=== PATIENT | female | born 1995 | race Caucasian/White ===

== ENCOUNTER 2020-03-14 21:34 | Outpatient (REF) | payer MEDICAID, SELFPAY ==
[2020-03-17 17:34] LABS: Patient Race White; SARS-CoV-2 RNA Undetected (Undetected); SARS-CoV-2 Specimen Source Nasal
== END 2020-03-14 21:54 ==
LOC: NCHCN 21:34
PROVIDERS: PCP Family Medicine; Visit Provider Family Medicine
DX: Z20.828 Contact with and (suspected) exposure to other viral communicable diseases (principal)
CPT/HCPCS: U0003

== ENCOUNTER 2021-09-05 09:17 | Emergency (ER) | payer MEDICAID, SELFPAY ==
[2021-09-05 09:26] VITALS: BP 126/68; PULSE 53; RESP 16; TEMP 36.6; O2SAT 100
--- NOTE | 2021-09-05 09:30 | DI.RAD_ITS ---
Exam(s) XR FOOT RT COMPLETE EXAM: XR FOOT RT COMPLETE CLINICAL HISTORY: 3rd 4th 5th toe injury, R/O Fracture. TECHNIQUE: 2D digital imaging was performed. COMPARISON: No exams were available for comparison FINDINGS: 3 views There is no oblique fracture in the proximal phalanx of the 4th toe There is no evidence of fracture or diastasis of the Lisfranc joint. Bone density is normal. No osseous lesions at the fracture site nor elsewhere in the foot. No radio paque foreign body. No pes planus. IMPRESSION: There is an oblique minimally displaced fracture in the proximal phalanx of the 4th toe. This fractu re does not appear to violate an articular surface. DATA REPOSITORY: RADIATION DOSE DELIVERED:
--- NOTE | 2021-09-05 09:33 | ED.GENADUL_ITS ---
Discharge Plan Disposition Patient Disposition: HOME Discharge Details Clinical Impression: Closed fracture of fourth toe of right foot Primary Care Provider: Neela Rodriguez ED Provider: Ilana Mora Home Meds and New Rx's Prescriptions: No Action multivitamin 1 EACH tablet 1 ea PO DAILY Discharge Instructions Instructions: Toe Fracture (ED) Additional Instructions: The X-rays show a fracture to the 4th toe. Wear the post op shoe as needed for comfort. Keep toe santy taped for splinting. Please follow up with Orthopedics as directed. They should call you for an appointment. If you do not hear from them in 3 days please call them. Rest Ice Compression, Elevation. Please take Tylenol or Ibuprofen with food every 4-6 hours as needed for pain and swelling. Referrals: Jerson Sol MD [ [facility] STAFF PHYSICIAN] - 2 weeks Medical Decision Making Patient placed in a postop shoe and santy tape instructed on RICE procedures and follow-up with Ortho. Patient verbalized understanding. This text was generated using [employer] dictation system, please disregard any oddities of phrase or misspellings. Imaging Data Radiologic Study: Imaging: X-Ray Radiologist's impression: FINDINGS: 3 views There is no oblique fracture in the proximal phalanx of the 4th toe There is no evidence of fracture or diastasis of the Lisfranc joint.? Bone density is normal.? No osseous lesions at the fracture site nor elsewhere in the foot.? No radiopaque foreign body.? No pes planus. IMPRESSION: There is an oblique minimally displaced fracture in the proximal phalanx of the 4th toe.? This fracture does not appear to violate an articular surface. HPI General Mode of arrival: ambulatory . Date/Time Provider Initiated Documentation: 09/05/21 09:20 . Limitations to Documentation: no limitations . Information obtained by: patient, RN notes reviewed and old records reviewed . HPI Narrative: 18-year-old female presents to the ER with chief complaint of right foot pain after slipping on wet concrete today morning and jamming her right foot into a door jam. She noted contusions noted to her third fourth and fifth toes. No obvious deformity noted. There is some ecchymosis. No significant swelling denies any foot pain ankle pain. No other complaints or injuries. Did not take any medications prior to arrival. Related Data Home Medications Medication Instructions Recorded Confirmed multivitamin 1 ea PO DAILY 02/21/15 09/05/21 Allergies Allergy/AdvReac Type Severity Reaction Status Date / Time No Known Drug Allergies Allergy Unverified 09/05/21 09:35 General Stated Complaint: Orthopedic JASWINDER: 4 Review of Systems All systems reviewed & are unremarkable except as noted in HPI and below Musculoskeletal Musculoskeletal: Reports as per HPI and Reports arthralgias (Toe pain) PFSH All Active Problems (Updated 09/05/21 @ 09:55 by Ilana Mora) Closed fracture of fourth toe of right foot (Acute) Positive home test (Acute) Social History Smoking/Tobacco Use Status: Former Tobacco Use Smoking risk assessment performed?: Yes Alcohol Intake: current Alcohol Intake frequency: a few times a month Alcohol type: wine Drug use: Occasionally Substance use type: marijuana Do you feel safe at home: Yes Do you feel safe in your relationship?: Yes Exam Extrem General: normal to inspection and full ROM Right upper extremity: normal to inspection Left upper extremity: normal to inspection Right lower extremity: normal capillary refill, lower leg Details: normal to inspection, ankle Details: normal to inspection and foot Details: normal capillary refill, abnormal to inspection, tenderness and other (Contusions noted 3rd, 4th, 5th toes); no cyanosis and no edema Left lower extremity: normal to inspection Course Vital Signs Vital signs: Vital Signs Temperature 36.6 C 09/05/21 09:26 Pulse 53 L 09/05/21 09:26 Respiratory Rate 16 09/05/21 09:26 Blood Pressure 126/68 09/05/21 09:26 Pulse Oximetry 100 09/05/21 09:26 Temperature 36.6 C 09/05/21 09:26 Temperature Source Tympanic 09/05/21 09:26 Pulse 53 L 09/05/21 09:26 Respiratory Rate 16 09/05/21 09:26 Blood Pressure 126/68 09/05/21 09:26 Blood Pressure Position Sitting 09/05/21 09:26 Pulse Oximetry 100 09/05/21 09:26 Oxygen Delivery Method Room Air 09/05/21 09:26 Oxygen Flow Rate 0 09/05/21 09:26 Pain Level 8 09/05/21 09:26
[2021-09-05] MEDS: Acetaminophen 325 MG TAB 650 MG PO (10:49)
== END 2021-09-05 10:49 | disposition home or self-care (01) ==
PROVIDERS: Emergency Provider Registered Nurse Emergency; PCP Family Medicine
DX: S92.591A Other fracture of right lesser toe(s), initial encounter for closed fracture (principal); W22.01XA Walked into wall, initial encounter
CPT/HCPCS: 99283; 73630

== ENCOUNTER 2021-09-14 11:58 | Outpatient (CLI) | payer MEDICAID, SELFPAY ==
--- NOTE | 2021-09-14 11:45 | DI.RAD_ITS ---
Exam(s) XR FOOT RT COMPLETE EXAM: XR FOOT RT COMPLETE CLINICAL HISTORY: f/u 4th toe fracture. TECHNIQUE: 2D digital imaging was performed of the right foot. Three images were obtained. AP, obl ique and lateral views were obtained. COMPARISON: CR XR FOOT RT COMPLETE from 09/05/2021 FINDINGS: BONES: There has been no change in alignment of the fracture involving the proximal phalanx of the 4t h toe. No bony destructive lesion is seen. JOINTS: No dislocation present. SOFT TISSUE: Normal. IMPRESSION: Stable fracture of the proximal phalanx of the 4th toe. DATA REPOSITORY: RADIATION DOSE DELIVERED:
== END 2021-09-14 11:59 | disposition home or self-care (01) ==
LOC: DIORS 11:59
PROVIDERS: PCP Student in an Organized Health Care Education/Training Program; Referring Provider Student in an Organized Health Care Education/Training Program; Visit Provider Student in an Organized Health Care Education/Training Program
DX: S92.511A Displaced fracture of proximal phalanx of right lesser toe(s), initial encounter for closed fracture; X58.XXXA Exposure to other specified factors, initial encounter
CPT/HCPCS: 73630

== ENCOUNTER 2022-05-08 03:30 | Outpatient (CLI) | payer MEDICAID, SELFPAY ==
[2022-05-08 14:56] LABS: Panorama Kit Sent via Fed Ex
[2022-05-08 14:58] LABS: Abs Immature Grans 0.05 10^3/uL (0.0-0.06); Absolute Basophil Count 0.04 10^3/uL (0.0-0.2); Absolute Eosinophil Count 0.11 10^3/uL (0.0-0.7); Absolute Lymphocyte Count 1.81 10^3/uL (1.2-3.4); Basophils % 0.3; Eosinophils % 0.9; HCT 33.5 % (36.0-46.0); HGB 11.8 g/dL (11.2-15.7); Immature Grans % 0.4; Lymphocytes % 14.2; MCH 33.3 pg (27.0-33.0); MCHC 35.2 % (32.0-36.0); MCV 95 fL (80-95); MPV 10.8 fL (8.0-11.0); Monocytes % 3.9; Neutrophils % 80.3; Platelet Count 304 10^3/uL (130-400); RBC 3.54 10^6/uL (3.93-5.22); RDW 11.6 % (11.7-14.6); RDW-SD 40.4 fL; WBC 12.77 10^3/uL (4.4-10.8)
[2022-05-08 15:00] LABS: Absolute Neutrophil Count 10.25 10^3/uL (1.2-6.7)
[2022-05-09 09:43] LABS: Hepatitis B Surface Ag Negative (Negative)
[2022-05-09 10:05] LABS: Hepatitis C Ab w Rflx HCV PCR Negative (Negative)
[2022-05-09 10:36] LABS: HIV-1/2 Ag & Ab Screen Negative (Negative)
[2022-05-09 11:30] LABS: Varicella IgG Antibody Positive (See Note)
[2022-05-09 11:36] LABS: Rubella IgG Ab (UVM) Positive (See Note)
[2022-05-09 23:03] LABS: Syphilis IgG w/Reflex Nonreactive (Nonreactive)
[2022-05-28 15:34] LABS: Result Summary NEGATIVE; Specimen WB Whole Blood
== END 2022-05-08 03:31 | disposition home or self-care (01) ==
LOC: LBO 03:30
PROVIDERS: PCP Student in an Organized Health Care Education/Training Program; Visit Provider Advanced Practice Midwife
DX: Z34.91 Encounter for supervision of normal pregnancy, unspecified, first trimester (principal); Z36.89 Encounter for other specified antenatal screening; Z3A.11 11 weeks gestation of pregnancy
CPT/HCPCS: 36415; 81220; 81222; 86787; 86803; 86850; 86900; 86901; 87340; 87389; 85025; 86762; 86780

== ENCOUNTER 2022-05-08 17:28 | Outpatient (REF) | payer MEDICAID, SELFPAY ==
[2022-05-08 19:19] LABS: *AMPHETAMINES SCREEN URINE Negative (Negative); *BARBITURATES SCREEN URINE Negative (Negative); *BENZODIAZEPINES SCREEN URINE Negative (Negative); Cannabinoids THC Positive (Negative); Cocaine Screen,Urine Negative (Negative); METHADONE URINE SCREEN Negative (Negative); OPIATES URINE SCREEN Negative (Negative)
[2022-05-08 19:20] LABS: Tricyclic Antidepressants Negative (Negative)
[2022-05-15 10:36] LABS: Buprenorphine Negative ng/mL (Cutoff: 5.0); Norbuprenorphine Negative ng/mL (Cutoff: 2.5)
== END 2022-05-08 17:29 | disposition home or self-care (01) ==
LOC: LBN 17:28
PROVIDERS: PCP Student in an Organized Health Care Education/Training Program; Visit Provider Advanced Practice Midwife
DX: Z34.91 Encounter for supervision of normal pregnancy, unspecified, first trimester (principal); Z3A.11 11 weeks gestation of pregnancy
CPT/HCPCS: 80307; 80348; 87086

== ENCOUNTER 2022-05-31 01:13 | Outpatient (CLI) | payer MEDICAID, SELFPAY ==
--- NOTE | 2022-05-31 07:45 | DI.US_ITS ---
Exam(s) US OB 1ST TRIMESTER EXAM: US OB 1ST TRIMESTER CLINICAL HISTORY: dating. Patient declines transvaginal,z34.90. TECHNIQUE: First trimester obstetrical ultrasound was performed. COMPARISON: No exams were available for comparison FINDINGS: There is an intrauterine gestational sac which contains a yolk sac and viable pole which exhibi ts heart rate of 152 bpm. [place]-rump length measurement is 79 mm, corresponding to 14 weeks gestational age. There appears to be normal amount of amniotic fluid. Maternal ovaries: Not visualized. There is no fluid in the cul-de-sac and adnexal regions. IMPRESSION:: Single viable intrauterine gestation which is approximately 14 weeks gestational age by crown rump length measurement, implying SHAMIKA of November 29, 2022., 2020. heart rate demonstrated. There is normal amount of amniotic fluid DATA REPOSITORY:
== END 2022-05-31 01:33 ==
LOC: DI 01:13
PROVIDERS: PCP Student in an Organized Health Care Education/Training Program; Visit Provider Advanced Practice Midwife
DX: Z34.91 Encounter for supervision of normal pregnancy, unspecified, first trimester (principal)
CPT/HCPCS: 76801

== ENCOUNTER 2022-07-23 02:02 | Outpatient (CLI) | payer MEDICAID, SELFPAY ==
--- NOTE | 2022-07-23 08:15 | DI.US_ITS ---
Exam(s) US OB 2-3 TRIMESTER EXAM: US OB 2-3 TRIMESTER CLINICAL HISTORY: morphology,Z34.92. TECHNIQUE: Transabdominal obstetrical ultrasound was performed. COMPARISON: US US OB 1ST TRIMESTER from 05/31/2022 FINDINGS: There is a single viable intrauterine gestation with cardiac activity identified-145 bpm. Amniotic fluid: There is a normal amount of amniotic fluid. Placental location: The placenta is anterior grade 1,with no evidence of placenta previa.Distance fro m the tip of the placenta to the internal cervical os is 6 cm. ANATOMY: A 3 vessel umbilical cord is seen. A four-chamber cardiac view was obtained. Right and left ventricular outflow tracts were imaged. There are no obvious abnormalities of the spinal column evident. There is no obvious abnormal ity of the anterior abdominal wall. stomach and urinary bladder are identified and there is no evidence of hydronephrosis. No abnormalities of the upper lip region are identified. No evidence of choroid plexus cysts i n the brain. Dating parameters place this at approximately 21 weeks and 6 days gestational age. BPD measures 22 weeks and 4 days HC measures 22 weeks and 2 days AC measures 21 weeks and 5 days FL measures 21 weeks and 0 days Estimated weight is 429 gm-0 pounds, 15 ounces. Fetus is at the 27th percentile on the Hadlock scale. IMPRESSION:: Single viable intrauterine gestation which is approximately 21 weeks and 6 days gestati onal age, implying an SHAMIKA of November 27, 2022. There are no obvious anomalies evident on today's study. The placenta is anterior grade 1 with no evidence of placenta previa. There is a normal amount of amniotic fluid. DATA REPOSITORY:
== END 2022-07-23 02:22 ==
LOC: DI 02:03
PROVIDERS: PCP Student in an Organized Health Care Education/Training Program; Visit Provider Advanced Practice Midwife
DX: Z34.92 Encounter for supervision of normal pregnancy, unspecified, second trimester (principal); Z3A.21 21 weeks gestation of pregnancy
CPT/HCPCS: 76805

== ENCOUNTER 2022-08-28 16:54 | Outpatient (CLI) | payer MEDICAID, SELFPAY ==
[2022-08-28 18:39] VITALS: BP 112/64; PULSE 62
[2022-08-28 18:44] VITALS: BP 112/64; PULSE 62; TEMP 36.7
--- NOTE | 2022-08-28 18:47 | W.OBNST ---
Date of service: 08/28/22 Time of Service: 18:47 NST Evaluation Reason for NST Reasons for Nonstress Test: OTHER, SEE COMMENT Reason for NST Other: Assess well being. Gestational Age Gestational Age in Weeks and Days: 27 Weeks and 0Days Test and Monitor Explained Test/Monitor Explained: Test Explained, Monitor Explained and Patient Verbalized Understanding Vital Signs Blood Pressure: 112/64 Pulse: 62 Temperature: 98.1 F NST Information Date on Monitor: 08/28/22 Time on Monitor: 18:21 Date off Monitor: 08/28/22 Time off Monitor: 18:42 Total Time on Monitor: 21 NST Interventions: PO Hydration NST Evaluation Patient States Movement: Present FHR Baseline: 140 Variability: Moderate 6-25 bpm Accelerations: 15x15 and 10x10 Decelerations: None NST Results: Reactive Note Ultrasound Done: N/A. NST Note Note: Joanna presented for NST due to complaint of vaginal bleeding after intercourse this morning that has stopped. She refuses vaginal exam. NST is reactive and there is no evidence of contractions on toco. Abdomen is soft and non tender to palpation. Joanna has an appointment in the office next week. Rh+. Will call with any further concerns. BEN NST Reviewed and Verified by: Juju Leahy
[2022-08-28 18:48] VITALS: BP 112/64; PULSE 62; TEMP 36.7
== END 2022-08-28 18:45 | disposition home or self-care (01) ==
LOC: BCD 16:55 → OBS 18:27
PROVIDERS: Visit Provider Advanced Practice Midwife
DX: Z3A.27 27 weeks gestation of pregnancy; O26.852 Spotting complicating pregnancy, second trimester
CPT/HCPCS: 59025

== ENCOUNTER 2022-09-11 03:40 | Outpatient (CLI) | payer MEDICAID, SELFPAY ==
[2022-09-11 10:30] LABS: HCT 33.1 % (36.0-46.0); HGB 11.4 g/dL (11.2-15.7); MCH 33.5 pg (27.0-33.0); MCHC 34.4 % (32.0-36.0); MCV 97 fL (80-95); MPV 11.1 fL (8.0-11.0); Platelet Count 267 10^3/uL (130-400); RDW 12.3 % (11.7-14.6); RDW-SD 43.8 fL; WBC 11.07 10^3/uL (4.4-10.8)
[2022-09-11 10:47] LABS: Glucose,1 Hr (Glucola) 65 mg/dL (80-140)
== END 2022-09-11 03:41 | disposition home or self-care (01) ==
LOC: LBO 03:40
PROVIDERS: Visit Provider Advanced Practice Midwife
DX: Z34.93 Encounter for supervision of normal pregnancy, unspecified, third trimester (principal); Z3A.28 28 weeks gestation of pregnancy
CPT/HCPCS: 36415; 82950; 85027

== ENCOUNTER 2022-10-29 14:24 | Outpatient (REF) | payer MEDICAID, SELFPAY | END 2022-10-29 14:25 | disposition home or self-care (01) | LOC: LBN 14:24 | PROVIDERS: Visit Provider Advanced Practice Midwife | DX: Z34.93 Encounter for supervision of normal pregnancy, unspecified, third trimester (principal); Z36.85 Encounter for antenatal screening for Streptococcus B; Z3A.35 35 weeks gestation of pregnancy | CPT/HCPCS: 87081 ==

== ENCOUNTER 2022-11-17 23:35 | Inpatient (IN) | payer MEDICAID, SELFPAY ==
[2022-11-17 23:50] VITALS: BP 136/83; PULSE 80
[2022-11-18] VITALS (24 sets, daily range): BP systolic 110–147; BP diastolic 58–83; PULSE 61–84; RESP 16; TEMP 36.3–36.7
[2022-11-18 00:15] LABS: ROM Plus Positive
--- NOTE | 2022-11-18 00:44 | HPE_ITS ---
Date of service: 11/18/22 Time of Service: 00:44 Assessment and Plan Assessment and plan (1) Rupture, membranes, premature: Status: Acute Assessment and plan: 1. Term ROM at 38w4d with contractions beginning within 2 hours of ROM 2. Patient prefers expectant management vs augmentation of labor 3. Initial labs ordered, ROM plus +, GC CT obtained on urine sample as not otherwise noted in chart, UDS sent as patient prefers to take her placenta home with her PP. 4. Will support labor and reassess in 4 hours or prn. OB-HPI Labor/Delivery History of Present Illness Reason for Visit: r/o labor Chief Complaint: Uterine Contractions; Suspected Rupture of Membranes , Associated Signs and Symptoms of Suspected ROM: ROM plus +, reported gush of fluid vaginally. SHAMIKA Calculator Estimated Delivery Date Method Current WG Current Estimate 11/27/22 LMP (Certain) 38w 5d Other Estimates 11/29/22 Ultrasound #1 38w 3d Comments: Joanna presents with her family with reported SROM at 2200 of clear fluid and increasing urterine contractions since that time. Denies bloody show. Reports baby is active. She is hoping for unmedicated labor and and prefer to use expectant management at this time. She has a plan that she brought with her as well. History of Present Expected Delivery Route/Plan BEATRIZ - LUIS ALFREDO FOB/timothy - Crispin Anderson, live together (he has a 10 year old) BB no circ To use shower & nitrous, maybe tub, wants upright or H&K positioning Plans placenta encapsulation (advised to delay until milk production established) GBS negative Specific Issues/Plan 1. cfDNA low risk x5 male, CF negative, declines AFP 2. History anxiety/depression, no meds, has found a therapist. 3. THC+ on initial UDS. Repeat @ 28 wks, discussed POSC w/pt, Reports that she stopped, declines repeat UDS 4. Right eye twitches & feels puffy, will try Magnesium & see operations label clerk 5. Needle phobia 6. Difficulty with milk supply - Desires consult ___ Review of Systems All systems reviewed & are unremarkable except as noted in HPI and below PFSH All Active Problems (Updated 11/18/22 @ 00:52 by Juju Leahy CNM) Rupture, membranes, premature (Acute) Acute adjustment disorder with mixed anxiety and depressed mood (Acute) Situational stress (Acute) Depression affecting (Chronic) Vasovagal syncope (Acute) Marijuana use (Acute) (Acute) Back pain affecting (Acute) Anxiety (Chronic 09/29/14) Medical History ASCUS of cervix with negative high risk HPV 2014 Closed fracture of sternal end of clavicle (02/05/13) NON DISPLACED History of tobacco use Missed menses PTSD (post-traumatic stress disorder) (09/29/14) Family History Mother Fibromyalgia Maternal Grandmother Rheumatoid arthritis Alcohol use disorder Father Heart disease congestive heart disease Diabetes Alcohol use disorder Brother Hypertension Alcohol use disorder Social History Smoking/Tobacco Use Status: Former Tobacco Use Smoking risk assessment performed?: Yes Alcohol Intake: current Alcohol Intake frequency: a few times a month Alcohol type: wine Drug use: Occasionally Substance use type: marijuana Housing: house Do you feel safe at home: Yes Do you feel safe in your relationship?: Yes History History 5 Para 1 Hx # Term Pregnancies 0 Multiple births 0 Hx # Pregnancies 0 Ectopic pregnancies 0 AB induced 2 Hx Number of Living Children 1 AB spontaneous 1 Past Pregnancies Del. Date GA/Weeks # Preg Succ Route Wgt Sex Labor Lgth Anesth esia Location [facility] 10/27/17 40 No Yes vaginal 7 lb 12 oz Male 30 hr labor [facility] Delivery Date: 10/27/17 Last Updated by: LUIS ALFREDO L[place]. Long second stage. meconium Meds Allergies and Home Medications Allergies Allergy/AdvReac Type Severity Reaction Status Date / Time No Known Drug Allergies Allergy Verified 11/13/22 10:53 Home Medications Medication Instructions Recorded Confirmed Type ferrous sulfate 325 mg (65 mg 325 mg PO DAILY #90 tabs 10/29/22 10/29/22 Rx iron) tablet (Feosol) vitamins no.119-iron 1 tab PO DAILY #90 tabs 10/29/22 10/29/22 Rx fumarate 29 mg-folic acid 1 mg tablet Exam Physical Exam Vital signs: Temp Pulse Resp BP 97.9 F 80 16 136/83 11/18/22 00:03 11/18/22 00:03 11/18/22 00:03 11/18/22 00:03 Vital Signs Reviewed: Yes Constitutional Constitutional: no acute distress and obese Detailed Labor and Delivery Exam Dilation: 1 Effacement (%): 60 station: -3 Cervix position: posterior Consistency: medium Brown Score: Cervical Points Exam 0 1 2 3 Dilation Closed 1-2cm 3-4 cm 5-6cm Effacement 0-30% 40-50% 60-70% 80% Consistency Firm Medium Soft Station -3 -2 -1,0 +1,+2 Position Posterior Mid Anterior BROWN Score(Cervical Ripeness Score): 4 Amniotic Membrane Status: Ruptured Rupture Method: Spontaneous Amniotic Fluid: Clear Monitor Mode: External Contraction Frequency(min): 2-4 Contraction Duration(sec): 50-60 Contraction Intensity: Mild Fetus A Heart Rate Baseline: 125 Monitor Accelerations: 15 X 15 Monitor Decelerations: None Variability: Moderate (6-25 BPM) Categories: Category I Date of Membrane Rupture: 11/17/22 Time of Membrane Rupture: 22:00 Assessment Note: this report is from tracing on admission, currently off monitor and will use intermittent doppler HEENT Exam HEENT Exam: Normal Neck Exam Neck Exam: Normal Chest/Brest/Axilla Exam Chest Exam: Normal Breast Exam Breast Exam: Not Done Respiratory Exam Respiratory Exam: Normal Cardiovascular Exam Cardiovascular Exam: Normal Abdominal Exam Abdominal Exam: Normal (gravid uterus size equals dates) Rectal Exam Rectal Exam: Not Done Exam Exam: Normal (no fluid return on VE, which was done by RN on admission) Extremities Exam Extremities Exam: Normal Back/Spine/Pelvis Exam Back Exam: Normal Pelvis Adequate: Yes Skin Exam Skin Exam: Normal Neurological Exam Neurological Exam: Normal Psychiatric Exam Psychiatric Exam: Normal (has needle phobia but agrees to admission labs) Results Results Group Beta Strep: Negative Blood Type: A+ Rubella Status: Immune Varicella Immunity: Immune Risk Assessment Risk for Shoulder Dystocia Historical/Initial OB: NEGATIVE FOR: Pelvic Abnormality, Pre- BMI>30, Previous Shoulder Dystocia or Previous Macrosomia 40 Weeks: POSTIVE FOR: Maternal Weight Gain >40lb; NEGATIVE FOR: EFW> 4500 gms or Post Dates Delivery Plan @ 40 wks: some risk due to weight gain in , will be prepared at delivery. BEN Risk for Pre-Eclampsia Yes, if one or more: NEGATIVE FOR: Hx Pre-E/Gest HTN, Chronic HTN, Multiple Gestation, Pre-gestational DM, Renal Disease, Systemic Lupus or APA Syndrome Yes, if 2 or more: NEGATIVE FOR: Nulliparity, Age>= 35 yrs, >10yr btwn pregnancies, BMI>30, ethinicty, Mother/Sister w/ Pre-E or Previous IUGR Risk for Post- Hemorrhage Initial: NEGATIVE FOR: Multiple Gestation, Previous PPH, Known Clotting Deficiency, Grand Multiparity or Anticoagulation 40 Weeks: NEGATIVE FOR: Anemia, hgb<10, Low platelets (thrombocytopenia), Gestation HTN or Pre-E, Polyhydraminios or EFW>4500gms At Risk?: No Counseled re: Active Management: Yes Date/Initials: 11/18/22 Risks Reviewed Risks Reviewed Upon Admission: Yes
[2022-11-18 00:51] LABS: HCT 35.6 % (36.0-46.0); HGB 12.6 g/dL (11.2-15.7); MCH 34.1 pg (27.0-33.0); MCHC 35.4 % (32.0-36.0); MCV 96 fL (80-95); MPV 11.8 fL (8.0-11.0); Platelet Count 254 10^3/uL (130-400); RDW 12.4 % (11.7-14.6); RDW-SD 43.5 fL; WBC 14.26 10^3/uL (4.4-10.8)
[2022-11-18 00:51] LABS: *AMPHETAMINES SCREEN URINE Negative (Negative); *BARBITURATES SCREEN URINE Negative (Negative); *BENZODIAZEPINES SCREEN URINE Negative (Negative); Cannabinoids THC Positive (Negative); Cocaine Screen,Urine Negative (Negative); METHADONE URINE SCREEN Negative (Negative); OPIATES URINE SCREEN Negative (Negative)
[2022-11-18 00:55] LABS: Tricyclic Antidepressants Negative (Negative)
--- NOTE | 2022-11-18 07:21 | W.PM.OBNL1 ---
Date of service: 11/18/22 Time of Service: 07:21 Pelvic Exam Comments: VE deferred at this time Contractions Monitor Mode: Palpation Contraction Frequency(min): 2-4 Contraction Duration(sec): 60 Intensity: Mild/Moderate Fetus A Monitor: Doppler Heart Rate Baseline: 130 Assessment and Plan Assessment and plan (1) Rupture, membranes, premature: Status: Acute Assessment and plan: 1. Working well with contractions 2. Continue present expectant management 3. Reassess in 4 hours or prn. KH Objective Abnormal lab results 11/18/22 11/18/22 Range/Units 00:03 00:42 WBC 14.26 H (4.4-10.8) 10^3/uL RBC 3.70 L (3.93-5.22) 10^6/uL Hct 35.6 L (36.0-46.0) % MCV 96 H (80-95) fL MCH 34.1 H (27.0-33.0) pg MPV 11.8 H (8.0-11.0) fL Ur THC Screen Positive A (Negative) Temp Pulse Resp BP 98.1 F 80 16 128/81 11/18/22 06:34 11/18/22 07:14 11/18/22 00:03 11/18/22 07:14 Laboratory Results WBC 14.26 10^3/uL (4.4-10.8) H 11/18/22 00:42 RBC 3.70 10^6/uL (3.93-5.22) L 11/18/22 00:42 Hgb 12.6 g/dL (11.2-15.7) 11/18/22 00:42 Hct 35.6 % (36.0-46.0) L 11/18/22 00:42 MCV 96 fL (80-95) H 11/18/22 00:42 MCH 34.1 pg (27.0-33.0) H 11/18/22 00:42 MCHC 35.4 % (32.0-36.0) 11/18/22 00:42 RDW 12.4 % (11.7-14.6) 11/18/22 00:42 Plt Count 254 10^3/uL (130-400) 11/18/22 00:42 MPV 11.8 fL (8.0-11.0) H 11/18/22 00:42 Membranes Rupture Positive 11/17/22 23:47 Urine Opiates Screen Negative (Negative) 11/18/22 00:03 Urine Methadone Screen Negative (Negative) 11/18/22 00:03 Ur Barbiturates Screen Negative (Negative) 11/18/22 00:03 Ur Tricyclics Screen Negative (Negative) 11/18/22 00:03 Ur Amphetamines Screen Negative (Negative) 11/18/22 00:03 U Benzodiazepines Scrn Negative (Negative) 11/18/22 00:03 Urine Cocaine Screen Negative (Negative) 11/18/22 00:03 Ur THC Screen Positive (Negative) A 11/18/22 00:03 Patient ABO/Rh A Positive 11/18/22 00:42 Antibody Screen NEGATIVE 11/18/22 00:42 Vital Signs Reviewed: Yes Subjective Interval history since last seen: Joanna reports more intense and frequent contractions for past hour. She had been sleeping for 3-4 hours and now feels things are changing. Denies vaginal bleeding and reports baby is active. KH Results Hemoglobin/Hematocrit: Hgb 12.6 g/dL (11.2-15.7) 11/18/22 00:42 Hct 35.6 % (36.0-46.0) L 11/18/22 00:42 Abnormal Lab Findings: Abnormal Labs 11/18/22 11/18/22 00:03 00:42 WBC 14.26 H RBC 3.70 L Hct 35.6 L MCV 96 H MCH 34.1 H MPV 11.8 H Ur THC Screen Positive A
--- NOTE | 2022-11-18 10:46 | W.PM.OBNL1 ---
Date of service: 11/18/22 Time of Service: 10:47 Pelvic Exam Comments: deferred Contractions Contraction Frequency(min): 2-4 Contraction Duration(sec): 60 Intensity: Moderate Fetus A Monitor: Doppler Heart Rate Baseline: 130 Assessment and Plan Assessment and plan (1) Rupture, membranes, premature: Status: Acute Assessment and plan: 1. Joanna plans to send her young sons home with a family member in the next few hours and prefers to avoid VE until after they leave unless otherwise indicated. 2. Continue expectant management. KH Objective Abnormal lab results 11/18/22 11/18/22 Range/Units 00:03 00:42 WBC 14.26 H (4.4-10.8) 10^3/uL RBC 3.70 L (3.93-5.22) 10^6/uL Hct 35.6 L (36.0-46.0) % MCV 96 H (80-95) fL MCH 34.1 H (27.0-33.0) pg MPV 11.8 H (8.0-11.0) fL Ur THC Screen Positive A (Negative) Temp Pulse Resp BP 97.9 F 65 16 137/75 11/18/22 10:16 11/18/22 09:20 11/18/22 09:20 11/18/22 09:20 Laboratory Results WBC 14.26 10^3/uL (4.4-10.8) H 11/18/22 00:42 RBC 3.70 10^6/uL (3.93-5.22) L 11/18/22 00:42 Hgb 12.6 g/dL (11.2-15.7) 11/18/22 00:42 Hct 35.6 % (36.0-46.0) L 11/18/22 00:42 MCV 96 fL (80-95) H 11/18/22 00:42 MCH 34.1 pg (27.0-33.0) H 11/18/22 00:42 MCHC 35.4 % (32.0-36.0) 11/18/22 00:42 RDW 12.4 % (11.7-14.6) 11/18/22 00:42 Plt Count 254 10^3/uL (130-400) 11/18/22 00:42 MPV 11.8 fL (8.0-11.0) H 11/18/22 00:42 Membranes Rupture Positive 11/17/22 23:47 Urine Opiates Screen Negative (Negative) 11/18/22 00:03 Urine Methadone Screen Negative (Negative) 11/18/22 00:03 Ur Barbiturates Screen Negative (Negative) 11/18/22 00:03 Ur Tricyclics Screen Negative (Negative) 11/18/22 00:03 Ur Amphetamines Screen Negative (Negative) 11/18/22 00:03 U Benzodiazepines Scrn Negative (Negative) 11/18/22 00:03 Urine Cocaine Screen Negative (Negative) 11/18/22 00:03 Ur THC Screen Positive (Negative) A 11/18/22 00:03 Patient ABO/Rh A Positive 11/18/22 00:42 Antibody Screen NEGATIVE 11/18/22 00:42 Subjective Interval history since last seen: Joanna is making arrangements for her sons to go home this afternoon and prefers to avoid VE until after they leave. States she feels labor is progressing. Has had some pink discharge after voiding. Agrees to VE after her sons leave this afternoon to further assess progress. Using shower for comfort often. KH Results Hemoglobin/Hematocrit: Hgb 12.6 g/dL (11.2-15.7) 11/18/22 00:42 Hct 35.6 % (36.0-46.0) L 11/18/22 00:42 Abnormal Lab Findings: Abnormal Labs 11/18/22 11/18/22 00:03 00:42 WBC 14.26 H RBC 3.70 L Hct 35.6 L MCV 96 H MCH 34.1 H MPV 11.8 H Ur THC Screen Positive A
--- NOTE | 2022-11-18 14:12 | PGE_ITS ---
Date of service: 11/18/22 Time of Service: 14:12 Informed Consent Informed Consent: Augmentation of Labor (Joanna continues to decline augmentation) and Risk,Benefits,Alternatives Discussed Pelvic Exam Comments: VE deferred Contractions Monitor Mode: Palpation Contraction Frequency(min): 2-4 Contraction Duration(sec): 60 Intensity: Moderate Fetus A Monitor: Doppler Heart Rate Baseline: 145 Assessment and Plan Assessment and plan (1) Rupture, membranes, premature: Status: Acute Assessment and plan: 1. Risks, benefits and alternatives to continuing to use expectant management of labor vs augmentation have been reviewed. Joanna declines augmentation at this time. 2. We reviewed risks of prolonged ROM and potential for infection, beulah. if ROM > 24 hours. She feels confident that her labor is progressing and again prefers to avoid medication for augmentation unless she gets closer to 24 hours. 3. Remains afebrile and VS stable 4. I have reviewed this patient preferences and current expectant management plan with Dr. Grant who is implementation specialist payroll today and she supports patient choice but agrees that if augmentation seems necessary that we should move forward with that when patient is prepared to do so. 5. Will reassess in 4 hours or prn. KH Objective Abnormal lab results 11/18/22 11/18/22 Range/Units 00:03 00:42 WBC 14.26 H (4.4-10.8) 10^3/uL RBC 3.70 L (3.93-5.22) 10^6/uL Hct 35.6 L (36.0-46.0) % MCV 96 H (80-95) fL MCH 34.1 H (27.0-33.0) pg MPV 11.8 H (8.0-11.0) fL Ur THC Screen Positive A (Negative) Temp Pulse Resp BP 97.9 F 69 16 127/68 11/18/22 14:08 11/18/22 14:08 11/18/22 12:11 11/18/22 14:08 Laboratory Results WBC 14.26 10^3/uL (4.4-10.8) H 11/18/22 00:42 RBC 3.70 10^6/uL (3.93-5.22) L 11/18/22 00:42 Hgb 12.6 g/dL (11.2-15.7) 11/18/22 00:42 Hct 35.6 % (36.0-46.0) L 11/18/22 00:42 MCV 96 fL (80-95) H 11/18/22 00:42 MCH 34.1 pg (27.0-33.0) H 11/18/22 00:42 MCHC 35.4 % (32.0-36.0) 11/18/22 00:42 RDW 12.4 % (11.7-14.6) 11/18/22 00:42 Plt Count 254 10^3/uL (130-400) 11/18/22 00:42 MPV 11.8 fL (8.0-11.0) H 11/18/22 00:42 Membranes Rupture Positive 11/17/22 23:47 Urine Opiates Screen Negative (Negative) 11/18/22 00:03 Urine Methadone Screen Negative (Negative) 11/18/22 00:03 Ur Barbiturates Screen Negative (Negative) 11/18/22 00:03 Ur Tricyclics Screen Negative (Negative) 11/18/22 00:03 Ur Amphetamines Screen Negative (Negative) 11/18/22 00:03 U Benzodiazepines Scrn Negative (Negative) 11/18/22 00:03 Urine Cocaine Screen Negative (Negative) 11/18/22 00:03 Ur THC Screen Positive (Negative) A 11/18/22 00:03 Patient ABO/Rh A Positive 11/18/22 00:42 Antibody Screen NEGATIVE 11/18/22 00:42 Vital Signs Reviewed: Yes Subjective Interval history since last seen: Crispin Marshall and myself had a conversation about prolonged rupture of membranes and risk of infection and the risks and benefits of augmenting labor vs expectant management. Her desire is to avoid any augmentation unless there is a medical reason to intervene. We talked about infection potential and that that risk is increased after 24 hours of ROM statistically. We also discussed that VE can increase that risk and if she strongly desires to not augment labor that VE is not necessary at this time. She reports her contractions have increased in discomfort and she continues to have episodes of leaking of fluid from time to time as well as pink discharge. She is using hands and knees on pad in room and birthing ball to soothe her discomforts. Contractions are noted to be felt in the front and she denies back pain. Contractions are moderate to palpation. Results Hemoglobin/Hematocrit: Hgb 12.6 g/dL (11.2-15.7) 11/18/22 00:42 Hct 35.6 % (36.0-46.0) L 11/18/22 00:42 Abnormal Lab Findings: Abnormal Labs 11/18/22 11/18/22 00:03 00:42 WBC 14.26 H RBC 3.70 L Hct 35.6 L MCV 96 H MCH 34.1 H MPV 11.8 H Ur THC Screen Positive A
--- NOTE | 2022-11-18 17:30 | W.PM.OBNL1 ---
Date of service: 11/18/22 Time of Service: 17:00 Informed Consent Informed Consent: Augmentation of Labor (Joanna continues to decline augmentation) and Risk,Benefits,Alternatives Discussed Pelvic Exam Dilation: 2 Effacement (%): 75 station: -1 Position: KARELY Cervix Position: posterior Consistency: soft Contractions Monitor Mode: Palpation Contraction Frequency(min): 2-8 Contraction Duration(sec): 45-60 Intensity: Mild/Moderate Fetus A Monitor: Doppler (last FHR 125) Assessment and Plan Assessment and plan (1) Rupture, membranes, premature: Status: Acute Assessment and plan: 1. Joanna is aware that she is eligible (and has been) for augmentation of labor. She is disappointed in her VE and would like to nap for strength. 2. She has requested that her support people other than Crispin leave and let her rest at this time 3. Will reassess in 2 hours or prn for readiness to further discuss augmentation options. KH Objective Abnormal lab results 11/18/22 11/18/22 Range/Units 00:03 00:42 WBC 14.26 H (4.4-10.8) 10^3/uL RBC 3.70 L (3.93-5.22) 10^6/uL Hct 35.6 L (36.0-46.0) % MCV 96 H (80-95) fL MCH 34.1 H (27.0-33.0) pg MPV 11.8 H (8.0-11.0) fL Ur THC Screen Positive A (Negative) Temp Pulse Resp BP 97.9 F 61 16 126/58 L 11/18/22 17:16 11/18/22 16:13 11/18/22 12:11 11/18/22 16:13 Laboratory Results WBC 14.26 10^3/uL (4.4-10.8) H 11/18/22 00:42 RBC 3.70 10^6/uL (3.93-5.22) L 11/18/22 00:42 Hgb 12.6 g/dL (11.2-15.7) 11/18/22 00:42 Hct 35.6 % (36.0-46.0) L 11/18/22 00:42 MCV 96 fL (80-95) H 11/18/22 00:42 MCH 34.1 pg (27.0-33.0) H 11/18/22 00:42 MCHC 35.4 % (32.0-36.0) 11/18/22 00:42 RDW 12.4 % (11.7-14.6) 11/18/22 00:42 Plt Count 254 10^3/uL (130-400) 11/18/22 00:42 MPV 11.8 fL (8.0-11.0) H 11/18/22 00:42 Membranes Rupture Positive 11/17/22 23:47 Urine Opiates Screen Negative (Negative) 11/18/22 00:03 Urine Methadone Screen Negative (Negative) 11/18/22 00:03 Ur Barbiturates Screen Negative (Negative) 11/18/22 00:03 Ur Tricyclics Screen Negative (Negative) 11/18/22 00:03 Ur Amphetamines Screen Negative (Negative) 11/18/22 00:03 U Benzodiazepines Scrn Negative (Negative) 11/18/22 00:03 Urine Cocaine Screen Negative (Negative) 11/18/22 00:03 Ur THC Screen Positive (Negative) A 11/18/22 00:03 Patient ABO/Rh A Positive 11/18/22 00:42 Antibody Screen NEGATIVE 11/18/22 00:42 Subjective Interval history since last seen: Joanna requested VE to determine how much longer her labor might be as she is becoming tired and would like to rest. She feels she needs to know her VE in order to allow herself to rest. Continues to decline augmentation at this time. KH Results Hemoglobin/Hematocrit: Hgb 12.6 g/dL (11.2-15.7) 11/18/22 00:42 Hct 35.6 % (36.0-46.0) L 11/18/22 00:42 Abnormal Lab Findings: Abnormal Labs 11/18/22 11/18/22 00:03 00:42 WBC 14.26 H RBC 3.70 L Hct 35.6 L MCV 96 H MCH 34.1 H MPV 11.8 H Ur THC Screen Positive A
--- NOTE | 2022-11-18 19:45 | W.PM.OBNL1 ---
Date of service: 11/18/22 Time of Service: 19:45 Informed Consent Informed Consent: Augmentation of Labor (Joanna continues to decline augmentation) and Risk,Benefits,Alternatives Discussed Pelvic Exam Comments: deferred VE Contractions Monitor Mode: Palpation Contraction Frequency(min): irregular Intensity: Mild/Moderate Fetus A Monitor: Doppler Heart Rate Baseline: 140 Assessment and Plan Assessment and plan (1) Rupture, membranes, premature: Status: Acute Assessment and plan: 1. In shower and experiencing contractions 2. FHR by doppler normal range 3. Will give report to Nasima Stark CNM who will assume care at 1999. Objective Abnormal lab results 11/18/22 11/18/22 Range/Units 00:03 00:42 WBC 14.26 H (4.4-10.8) 10^3/uL RBC 3.70 L (3.93-5.22) 10^6/uL Hct 35.6 L (36.0-46.0) % MCV 96 H (80-95) fL MCH 34.1 H (27.0-33.0) pg MPV 11.8 H (8.0-11.0) fL Ur THC Screen Positive A (Negative) Temp Pulse Resp BP 97.9 F 61 16 126/58 L 11/18/22 17:16 11/18/22 16:13 11/18/22 12:11 11/18/22 16:13 Laboratory Results WBC 14.26 10^3/uL (4.4-10.8) H 11/18/22 00:42 RBC 3.70 10^6/uL (3.93-5.22) L 11/18/22 00:42 Hgb 12.6 g/dL (11.2-15.7) 11/18/22 00:42 Hct 35.6 % (36.0-46.0) L 11/18/22 00:42 MCV 96 fL (80-95) H 11/18/22 00:42 MCH 34.1 pg (27.0-33.0) H 11/18/22 00:42 MCHC 35.4 % (32.0-36.0) 11/18/22 00:42 RDW 12.4 % (11.7-14.6) 11/18/22 00:42 Plt Count 254 10^3/uL (130-400) 11/18/22 00:42 MPV 11.8 fL (8.0-11.0) H 11/18/22 00:42 Membranes Rupture Positive 11/17/22 23:47 Urine Opiates Screen Negative (Negative) 11/18/22 00:03 Urine Methadone Screen Negative (Negative) 11/18/22 00:03 Ur Barbiturates Screen Negative (Negative) 11/18/22 00:03 Ur Tricyclics Screen Negative (Negative) 11/18/22 00:03 Ur Amphetamines Screen Negative (Negative) 11/18/22 00:03 U Benzodiazepines Scrn Negative (Negative) 11/18/22 00:03 Urine Cocaine Screen Negative (Negative) 11/18/22 00:03 Ur THC Screen Positive (Negative) A 11/18/22 00:03 Patient ABO/Rh A Positive 11/18/22 00:42 Antibody Screen NEGATIVE 11/18/22 00:42 Subjective Interval history since last seen: Out of bed and in the shower. Reports she is experiencing contractions again and feels good that she rested. KH Results Hemoglobin/Hematocrit: Hgb 12.6 g/dL (11.2-15.7) 11/18/22 00:42 Hct 35.6 % (36.0-46.0) L 11/18/22 00:42 Abnormal Lab Findings: Abnormal Labs 11/18/22 11/18/22 00:03 00:42 WBC 14.26 H RBC 3.70 L Hct 35.6 L MCV 96 H MCH 34.1 H MPV 11.8 H Ur THC Screen Positive A
--- NOTE | 2022-11-18 21:05 | W.PM.OBNL1 ---
Date of service: 11/18/22 Time of Service: 21:05 Informed Consent Informed Consent: Augmentation of Labor (Joanna continues to decline augmentation), Risk,Benefits,Alternatives Discussed and Other (declines vaginal exams, declines antibiotics for PROM >24 hrs) Pelvic Exam Comments: deferred at pt request Contractions Monitor Mode: External Contraction Frequency(min): irreg q 5-15 minutes apart Intensity: Mild/Moderate Fetus A Monitor: External (US) Heart Rate Baseline: 120 Variability: Moderate (6-25 BPM) Categories: Category I Accelerations: 15 X 15 Decelerations: None Amniotic Membrane Status: Ruptured (since 2199 yesterday) Rupture Method: Spontaneous Amniotic Fluid: Clear Assessment and Plan Assessment and plan (1) Prolonged rupture of membranes: Status: Acute Assessment and plan: A: 27 yo @ 38+5 wks PROM x24 hrs, clear fluid, Prolonged latent phase of labor Category 1 tracing, GBS neg Increased risk for PPH, low risk for SD P: Pt wrote a plan which will be honored AMAP Currently declining induction/augmentation, vaginal exam and antibiotics Will monitor FHT baseline, maternal pulse, temp and urine output Encourage PO hydration & activity to increase labor Anticipate , Dr. Grant available for consult Objective Vital Signs Reviewed: Yes Notable Details: normtensive, afebrile, pulse <90 Objective Narrative Objective Narrative: Hand off from LUIS ALFREDO Leahy Pt has been counseled regarding R&B of prolonged ROM Induction of labor & ATB prophylaxis have been offered and declined by pt Cvx checks done x2 in total revealing progression from 1/60% (admission) to 2/70% Last cvx check done at 1700 today Category 1 tracing noted; FHT baseline at 120's, pt afebrile w/pulse <90 Pt tolerating PO intake without emesis, voiding qs Pt attended by FOB and 2 girlfriends at this time Subjective Interval history since last seen: Pt took a 2 hr nap this evening, then enjoyed a shower during which contractions seemed to intensify, now H&K on cub or physioball though contractions seemed to decrease in frequency. Will try different positions, possibly return to shower.
--- NOTE | 2022-11-18 23:52 | W.PM.OBNL1 ---
Date of service: 11/18/22 Time of Service: 23:53 Informed Consent Informed Consent: Augmentation of Labor (pt considering), Risk,Benefits,Alternatives Discussed and Other (consents to IV access and PCN prophylaxs) Pelvic Exam Dilation: 5 Effacement (%): 80 station: -2 Position: LOP Cervix Position: mid Consistency: soft Contractions Monitor Mode: Palpation Contraction Frequency(min): irregular q 5-10 Intensity: Moderate Fetus A Monitor: Doppler Heart Rate Baseline: 130 FHR Rhythm: Regular Characteristics: Normal Amniotic Membrane Status: Ruptured Assessment and Plan Assessment and plan (1) Prolonged latent phase of labor: Status: Acute (2) Prolonged rupture of membranes: Status: Acute Assessment and plan: A: Has advanced to 5 cm dilation ROM x26 hrs; FHT reassuring per doptone Labor pattern not well established P: In consultation with her support people pt consents to IV PCN prophylaxis Pitocin augmentation recommended and pt is considering Anticipate today Objective Vital Signs Reviewed: Yes Subjective Interval history since last seen: Contractions are increasing and decreasing depending on pt's activity and position, pt reports she is very tired and sleepy, starting to think she wants to get this over with. She requests a vaginal exam, and thinks at this point antibiotics would be a good idea to protect her baby. She is considering pitocin augmentation soon.
[2022-11-19] VITALS (23 sets, daily range): BP systolic 98–128; BP diastolic 53–83; PULSE 0–94; RESP 18; TEMP 36.1–36.7; O2SAT 97
[2022-11-19] MEDS: Penicillin G POT. 5,000,000 UNITS in Normal Saline 100 ML 100 UNITS IVPB (00:11)
[2022-11-19] MEDS: Ondansetron 4 MG/2 ML VIAL IVP (00:21)
[2022-11-19] MEDS: Normal Saline Flush 10 ML SYR IVP ×2 (00:22→05:54)
[2022-11-19] MEDS: Normal Saline 500 ML 95 ML IV (02:53)
[2022-11-19] MEDS: Lactated Ringers 1,000 ML 125 ML IV (02:56)
[2022-11-19] MEDS: Oxytocin/Normal Saline 30 UNIT/500 ML BAG 2 UNITS IV (03:00)
[2022-11-19] MEDS: Penicillin G POT. 3,000,000 UNITS in Normal Saline 50 ML 100 UNITS IVPB (04:10)
[2022-11-19] MEDS: fentaNYL 100 MCG/2 ML VIAL 25 MCG IVP (05:50)
--- NOTE | 2022-11-19 06:01 | W.PM.OBNL1 ---
Date of service: 11/19/22 Time of Service: 06:01 Informed Consent Informed Consent: Augmentation of Labor (pt considering), Risk,Benefits,Alternatives Discussed and Other (consents to IV access and PCN prophylaxs) Pelvic Exam Dilation: 8 station: -1 Comments: Large forebag palpable Contractions Monitor Mode: External Contraction Frequency(min): q2-3 Intensity: Moderate/Strong Fetus A Monitor: External (US) Heart Rate Baseline: 125 Variability: Moderate (6-25 BPM) Categories: Category I Decelerations: None Assessment and Plan Assessment and plan (1) Prolonged rupture of membranes: Status: Acute Assessment and plan: A: Active labor with pitocin augmentation Prophylaxis completed with 2 doses PCN infused Category 1 tracing, Pitocin at 5 u/min P: Fentanyl 25 mcg IV per pt request LLP with pnut ball Anticipate Objective Objective Narrative Objective Narrative: Emesis several times over past hour Afebrile, category 1 tracing Pitocin begun @ 0300 with pt consent, RN exam 6 cm dialted Pt reporting back pain and pelvic pressure Coping poorly at this time, crying & flailing Subjective Interval history since last seen: Nitrous not very helpful, pr requesting IV analgesia, declines regional anethesia.
--- NOTE | 2022-11-19 06:34 | OBVDS_ITS ---
Date of service: 11/19/22 Time of Service: 06:34 OB Labor/ Delivery Information Baby A Delivery Delivery Method: Spontaneaous Presentation: Cephalic Cephalic Position: Vertex Vertex Position: Right Occipital Anterior Cord Description-Baby A: 3 Vessels Amniotic Fluid: Meconium Estimated Blood Loss: 150 ml Delivery Outcome: Liveborn Transferred: Remains with Mother Note: Pt relaxed and rested well after fentanyl 0.25 mcg given IVP, turned to LLP with pnut ball between knees, shortly thereafter pt reported strong urges to push, 2nd stage huddle completed, category 1 tracing noted, forebag ruptured spontaneously with meconium fluid noted and head began within the next 2 contractions. in LLP a vigorous male over intact perineum, shoulders delivered easily and crying placed in mothers arms. Pitocin IV bolus started, cord clamped and cut by FOB at 4 minutes of age, Funez placenta delivered intact with 3VC, cord blood collected. Vulva and vagina inspected and found to be without laceration, fundus firm below umbilicus, strong family bonding observed, apgars 8/9, weight 3370 gms. Providers Nurse Switchboard Receptionist: Pauline Stark Nurse: Maryam Stark Nurse: Basia Campa Labor/Delivery Information Steroids Given: None Reason Steroids Not Administered: N/A Group Beta Strep: Negative Antibiotics Administered: Yes Number of Doses of Antibiotics: 2 Rubella Status: Immune Blood Type: A+ Varicella Immunity: Immune Medication in Delivery: pitocin aug, fentanyl 0.25 mcg IV @ 8 cm dilation, pitocin bolus Shoulder Dystocia: No Stages of Labor Onset of Labor Date: 11/17/22 Onset of Labor Time: 22:00 Complete Dilatation Date: 11/19/22 Complete Dilatation Time: 06:11 Labor - Stage 1 Duration: 32 hours and 11 minutes ROM Baby A: 11/17/22 ROM Baby A: 22:00 Infant Delivery Date-Baby A: 11/19/22 Infant Delivery Time-Baby A: 06:13 Labor Stage 2 Duration: 2 minutes Placenta Delivery Date-Baby A: 11/19/22 Placenta Delivery Time-Baby A: 06:26 Labor-Stage 3 Duration: 13 minutes Total Length of Labor-Baby A: 32 hours and 13 minutes Placenta Status: Delivered Baby A Gender: Male Gestational Status: Early Term (37-38.6 wks) weight: 7 lb 6.873 oz Weight Comment: 3370 gms Score-1 Minute Interval(Baby A) Heart Rate-1 minute: 100 BPM or Greater Respiratory Effort- 1 minute: Spontaneous/Strong Cry Muscle Tone-1 minute: Minimal Flexion/Extension Color-1 minute: Bluish Hands or Feet Score-5 Minute Interval(Baby A) Heart Rate- 5 minute: 100 BPM or Greater Respiratory Effort-5 minute: Spontaneous/Strong Cry Muscle Tone-5 minute: Active Movement Reflex Response-5 minute: Prompt Response Color-5 minute: Bluish Hands or Feet Procedure Procedures: Cord Blood Collection Interventions Pain Management Interventions: Nitrous Oxide , minimal use and IV Analgesics , medication administered: fentanyl ./ Augmentation , Pitocin rate (mU/min): 5 infusion from 6 cm to delivery, over a 3 hr period .
[2022-11-19] MEDS: Dibucaine 1% 28 GM TUBE TP (07:05)
[2022-11-19] MEDS: Hamamelis Leaf/Glycerin 100 EACH BOX PR (07:05)
[2022-11-19] MEDS: Acetaminophen 325 MG TAB 650 MG PO ×4 (07:05→20:54)
[2022-11-19] MEDS: Ibuprofen 600 MG TAB PO ×3 (07:06→20:54)
[2022-11-19 12:12] LABS: Chlamydia Result Negative (Negative); GC Result Negative (Negative)
[2022-11-20] MEDS: Acetaminophen 325 MG TAB 650 MG PO ×2 (05:51→14:45)
[2022-11-20] MEDS: Ibuprofen 600 MG TAB PO (05:52)
[2022-11-20] MEDS: Docusate Sodium 100 MG CAP PO (07:50)
[2022-11-20 07:57] VITALS: BP 103/68; PULSE 77; RESP 20; TEMP 36.4; O2SAT 98
--- NOTE | 2022-11-20 09:02 | OBPPV_ITS ---
Date of service: 11/20/22 Time of Service: 09:02 Assessment and Plan Assessment and plan (1) Term delivered: Status: Acute Assessment and plan: A: PPD#1, nml recovery going well Satisfied with experience P: Pt requests discharge home today Written instructions reviewed and given to pt F/up at 2 & 6 wks Subjective Subjective Patient comments: No complaints, Pain well controlled, Tolerating diet and Flatus present Patient's Mood: happy [place] baby status: Doing well, Nursing well, Rooming in and Strong Bonding Observed feeding status: Exclusively breast feeding Exam Physical Exam Vital signs: Temp Pulse Resp BP Pulse Ox 97.5 F L 77 20 103/68 98 11/20/22 07:57 11/20/22 07:57 11/20/22 07:57 11/20/22 07:57 11/20/22 07:57 Vital Signs Reviewed: Yes Constitutional Constitutional: no acute distress, average body habitus and cooperative HEENT Exam HEENT Exam: Normal Neck Exam Neck Exam: Normal Breast Exam Bilateral: Breast Exam: Normal and Soft Nipple Exam: Normal and Uninjured Respiratory Exam Respiratory Exam: Normal Cardiovascular Exam Cardiovascular Exam: Normal Fundal Exam Fundus: Below Umbilicus and Firm Rectal Exam Rectal Exam: Normal Exam Patient deferred: external exam Extremities Exam Extremity Exam: Normal, Full ROM and Warm to Touch Back/Spine/Pelvis Exam Back Exam: Normal Skin Exam Skin Exam: Normal Neurological Exam Neurological Exam: Normal Psychiatric Exam Psychiatric Exam: Normal
--- NOTE | 2022-11-20 09:10 | DSE_ITS ---
Date of service: 11/20/22 Time of Service: 09:10 DS: Diagnosis Discharge Diagnosis (1) Term delivered: Status: Acute Discharge Plan Disposition Patient Disposition: Home Condition: Good Discharge Details Reason For Visit: R/O Labor Admit Date/Time: 11/18/22 21:16 Admit Provider: Juju Leahy Attending Provider: Juju Leahy Hospital Course Hospital Course: Admitted for PROM, slow progress over 24 hrs, labor augmented and antibiotics given for ROM >24 hrs, , nml course. Home Meds and New Rx's Prescriptions: No Action ferrous sulfate [Feosol] 325 mg (65 mg iron) tablet 325 mg PO DAILY Qty: 90 0RF PNV 119-iron fum-folic acid 29 mg iron- 1 mg tablet 1 tab PO DAILY Qty: 90 3RF medroxyprogesterone [Depo-Provera] 150 mg/mL syringe 150 mg IM Q12W Qty: 1 4RF Discharge Instructions Additional Instructions: Keep 2 and 6 week appointments with your road packer operator, please call for any and all concerns or questions.If you would liek to have a Depo injection at one of your appointments, please bring the medication from your pharmacy with you to the appointment. Stand Alone Forms: BC Instructions, BC Post Vaginal Deliver Activity:: Activity as Tolerated Equipment/Supplies:: No Equipment Needed Diet:: Normal Diet Discharge Orders Discharge Orders: Discharge Order (Routine); Ordered 11/20/22 Ordered By: Pauline Stark OB:DS Summary Summary Vaginal Delivery Method: Spontaneaous Contraception Discussed Contraception Discussed: Yes Contraceptive Plan: Medroxyprogesterone, Gender-Baby A: Male weight: 7 lb 6.873 oz Status at Discharge Functional status at discharge: independent ambulation Overall status at discharge: patient is progressing back to baseline Mental Status: mental status grossly normal Speech and Movement: speech and movement normal and speech clear Mood: congruent mood Affect: normal affect Exam Physical Exam Vital signs: Temp Pulse Resp BP Pulse Ox 97.5 F L 77 20 103/68 98 11/20/22 07:57 11/20/22 07:57 11/20/22 07:57 11/20/22 07:57 11/20/22 07:57 Constitutional Constitutional: no acute distress, average body habitus and cooperative HEENT Exam HEENT Exam: Normal Neck Exam Neck Exam: Normal Breast Exam Bilateral: Breast Exam: Normal and Soft Respiratory Exam Respiratory Exam: Normal Cardiovascular Exam Cardiovascular Exam: Normal Fundal Exam Fundus: Below Umbilicus and Firm Rectal Exam Rectal Exam: Normal Exam Patient deferred: external exam Extremities Exam Extremity Exam: Normal, Full ROM and Warm to Touch Back/Spine/Pelvis Exam Back Exam: Normal Skin Exam Skin Exam: Normal Neurological Exam Neurological Exam: Normal Psychiatric Exam Psychiatric Exam: Normal Additional findings Additional findings: Large forebag palpable PFSH All Active Problems Term delivered (Acute) Acute adjustment disorder with mixed anxiety and depressed mood (Acute) Situational stress (Acute) Depression affecting (Chronic) Marijuana use (Acute) Medical History (Updated 11/20/22 @ 09:03 by Pauline Stark) Anxiety (09/29/14) ASCUS of cervix with negative high risk HPV 2014 Back pain affecting Closed fracture of sternal end of clavicle (02/05/13) NON DISPLACED History of tobacco use Missed menses Prolonged latent phase of labor Prolonged rupture of membranes PTSD (post-traumatic stress disorder) (09/29/14) Rupture, membranes, premature Vasovagal syncope Family History Mother Fibromyalgia Maternal Grandmother Rheumatoid arthritis Alcohol use disorder Father Heart disease congestive heart disease Diabetes Alcohol use disorder Brother Hypertension Alcohol use disorder Social History Smoking/Tobacco Use Status: Former Tobacco Use Smoking risk assessment performed?: Yes Alcohol Intake: current Alcohol Intake frequency: a few times a month Alcohol type: wine Drug use: Occasionally Substance use type: marijuana Housing: house Do you feel safe at home: Yes Do you feel safe in your relationship?: Yes History History 5 Para 1 Hx # Term Pregnancies 0 Multiple births 0 Hx # Pregnancies 0 Ectopic pregnancies 0 AB induced 2 Hx Number of Living Children 1 AB spontaneous 1 Past Pregnancies Del. Date GA/Weeks # Preg Succ Route Wgt Sex Labor Lgth Anesth esia Location [facility] 10/27/17 40 No Yes vaginal 7 lb 12 oz Male 30 hr labor [facility] Delivery Date: 10/27/17 Last Updated by: LUIS ALFREDO Linton. Long second stage. meconium DS: Data Vitals/I&O Vitals and I&O: Vital Signs Temperature 97.5 F L 11/20/22 07:57 Temperature Source Oral 11/20/22 07:57 Pulse 77 11/20/22 07:57 Pulse Rhythm Regular 11/20/22 07:30 Respiratory Rate 20 11/20/22 07:57 Respiratory Effort Normal, Non-Labored 11/18/22 07:23 Respiratory Depth Normal 11/19/22 19:00 Respiratory Pattern Normal 11/18/22 07:23 Blood Pressure 103/68 11/20/22 07:57 Blood Pressure Mean 79 11/20/22 07:57 Pulse Oximetry 98 11/20/22 07:57 Oxygen Delivery Method Room Air 11/18/22 01:30 Oxygen Flow Rate 0 11/18/22 01:30 Pain Level 1 11/20/22 07:57 Comment pt unable to tolerate oral temp due to nausea. 11/19/22 06:00 Intake & Output 11/19/22 11/19/22 11/20/22 11:59 23:59 11:59 Intake Total 1612.133 / 1612.133 Output Total 750 / 3350 2600 / 3350 Balance 862.133 / -1737.867 -2600 / -1737.867 Intake: IV 1612.133 / 1612.133 Output: Urine 750 / 3350 2600 / 3350 Other: Urine Color Pale Urine Appearance Clear Data Completed and Pending Labs on day of discharge: Labs from last 24 hours 11/18/22 00:03 Chlamydia DNA Probe Negative Chlamydia/GC DNA Source Not Applicable N.gonorrhoeae DNA Probe Negative
[2022-11-20 12:07] VITALS: BP 116/77; PULSE 76; RESP 20; TEMP 36.6; O2SAT 98
[2022-11-20 14:23] VITALS: TEMP 36.7
== END 2022-11-20 15:00 | disposition home or self-care (01) | DRG 806 ==
PROVIDERS: Admitting Provider Advanced Practice Midwife; Visit Provider Advanced Practice Midwife
DX: O42.02 Full-term premature rupture of membranes, onset of labor within 24 hours of rupture (principal); O99.324 Drug use complicating childbirth; Z37.0 Single live birth; O63.0 Prolonged first stage (of labor); Z3A.38 38 weeks gestation of pregnancy; O77.0 Labor and delivery complicated by meconium in amniotic fluid; O99.344 Other mental disorders complicating childbirth; F41.8 Other specified anxiety disorders; F12.90 Cannabis use, unspecified, uncomplicated; Z87.891 Personal history of nicotine dependence
CPT/HCPCS: 36415; 80307; 84112; 85027; 86850; 86900; 86901; 87491; 87591; J2405; J2540; J3010

== ENCOUNTER 2023-02-08 05:21 | Emergency (ER) | payer MEDICAID, SELFPAY ==
[2023-02-08 05:27] VITALS: BP 117/56; PULSE 62; RESP 16; TEMP 36.6; O2SAT 100
--- NOTE | 2023-02-08 05:30 | RT.EKG_ITS ---
APPROVED REPORT Exam: Resting ECG Reason for Exam: chest pain Patient Location: E HR:56 bpm ECG Measurements Heart Rate 56 AXIS MT 166 P 50 QRSd 95 QRS 21 QT 439 T 11 QTc 423 Conclusion Sinus bradycardia...rate< 60 Physician: no stemi, inverted t wave in V1 and III. Q wave in III
--- NOTE | 2023-02-08 05:30 | DI.CT_ITS ---
Exam(s) CT CHEST PE CTA EXAM: CT CHEST PE CTA CLINICAL HISTORY: left sided chest pain, , eval for PE. TECHNIQUE: Imaging Protocol: CT angiography of the chest was performed using pulmonary embolus smiley col. Multi planar reconstructions were performed. CONTRAST MATERIAL: Intravenous: Omnipaque 350 Contrast volume: 100 cc COMPARISON: No exams were available for comparison FINDINGS: CHEST: PULMONARY ARTERIES: There are no intraluminal filling defects to suggest acute pulmonary emboli. LUNGS: There are no confluent infiltrates nor evidence of pulmonary infarction.. There are no pleural effusions. Is subpleural bulla in the posterior lower lobe measuring 1.8 x 0.9 cm. MEDIASTINUM: There is no hilar nor mediastinal adenopathy. Visualized thyroid unremarkable. CARDIAC: Heart size is upper normal. There is no pericardial effusion.Caliber of the thoracic aorta is within normal limits. No dissection. There is no significant shift of the interventricular septum . PARTIALLY VISUALIZED UPPERMOST ABDOMEN: No obvious findings OSSEOUS: No significant osseous lesions.. IMPRESSION: 1. No evidence of acute pulmonary emboli. No evidence of pulmonary infarction.No confluent infiltrat es nor pleural effusions. Called by myself to ER provider. RADIATION DOSE DELIVERED: Total DLP DATA REPOSITORY: All CT scans at this facility are submitted to the National Radiology Data Registry (NRDR) Dose Index Registry (DIR) with the [employer] (ACR). RADIATION OPTIMIZATION: All CT scans at this facility use at least one of these dose optimization te chniques: automated exposure control; mA and/or kV adjustment per patient size (includes targeted exa ms where dose is matched to clinical indication); or iterative reconstruction.
[2023-02-08 06:01] LABS: BE (Venous) 3 mmol/L (-2-3); HCO3 (Venous) 29 mmol/L (23-28); O2 Sat (Venous) 47 %; TCO2 (Venous) 26 mmol/L (24-29); pCO2 (Venous) 55 mmHg (41-51); pH (Venous) 7.33 (7.31-7.41); pO2 (Venous) 29 mmHg
[2023-02-08 06:02] LABS: Abs Immature Grans 0.02 10^3/uL (0.0-0.06); Absolute Basophil Count 0.07 10^3/uL (0.0-0.2); Absolute Eosinophil Count 0.19 10^3/uL (0.0-0.7); Absolute Lymphocyte Count 2.03 10^3/uL (1.2-3.4); Absolute Monocyte Count 0.75 10^3/uL (0.1-0.8); Absolute Neutrophil Count 5.24 10^3/uL (1.2-6.7); Basophils % 0.8; Eosinophils % 2.3; HGB 14.4 g/dL (11.2-15.7); Immature Grans % 0.2; Lymphocytes % 24.5; MCHC 34.3 % (32.0-36.0); MCV 93 fL (80-95); MPV 10.7 fL (8.0-11.0); Neutrophils % 63.2; Platelet Count 324 10^3/uL (130-400); RDW 11.6 % (11.7-14.6); RDW-SD 39.7 fL
[2023-02-08 06:17] LABS: Prothrombin Time 9.9 sec (9.1-11.1)
[2023-02-08 06:29] LABS: ALT 39 U/L (14-59); AST 22 U/L (15-37); Albumin 4.1 g/dL (3.4-5.0); Alkaline Phosphatase 95 U/L (46-116); Anion Gap 7.1 mmol/L (3-11); BUN 17 mg/dL (7-18); Bilirubin, Total 0.4 mg/dL (0.2-1.0); CO2 28.9 mmol/L (21.0-32.0); CREATININE 0.9 mg/dL (0.55-1.02); Calcium 9.5 mg/dL (8.5-10.1); Chloride 103 mmol/L (98-107); Estimated GFR 88.75 (mL/min/1.73m2); Glucose 107 mg/dL (74-106); Lipase 41 U/L (16-77); NT-proBNP 47 pg/mL (<300); Potassium 4.2 mmol/L (3.5-5.1); Sodium 139 mmol/L (136-145); Total Protein 7.8 g/dL (6.4-8.2); Troponin I < 50 ng/L (<or=60)
[2023-02-08] MEDS: Normal Saline - Diluent 50 ML VIAL IJ (06:34)
[2023-02-08] MEDS: Omnipaque 350 MG/ML 100 ML BTL IJ (06:35)
[2023-02-08 06:50] LABS: COVID-19 PCR Negative (Negative); Influenza A PCR Negative (Negative); Influenza B PCR Negative (Negative); RSV PCR Negative (Negative)
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
[2023-02-08 06:54] VITALS: BP 117/56; PULSE 62; RESP 16; TEMP 36.6; O2SAT 100
[2023-02-08 06:54] LABS: Source Nasopharynx
[2023-02-08] MEDS: ACETAMINOPHEN 1,000 MG/100 ML BTL 400 MG IVPB (07:27)
[2023-02-08] MEDS: Albuterol/Ipratropium 3 ML UPD VIAL UPD (07:27)
[2023-02-08 08:31] VITALS: BP 119/62; PULSE 61; RESP 18; O2SAT 97
[2023-02-08] MEDS: Albuterol HFA 8 GM 60 PUFF INH IH (08:31)
--- NOTE | 2023-02-08 08:48 | DI.VRAD_ITS ---
PROCEDURE INFORMATION: Exam: CTA Chest With Contrast Exam date and time: 02/08/2023 6:51 AM Age: 27 years old Clinical indication: Left-sided and other: , eval pe; Patient HX: Left sided chest pain, , eval for pe TECHNIQUE: Imaging protocol: Computed tomographic angiography of the chest with contrast. Exam focused on the arteries. 3D rendering (Not supervised by radiologist): MIP and/or 3D reconstructed images were created by the technologist. Contrast material: OMNIPAQUE 350; Contrast volume: 100 ml; Contrast route: INTRAVENOUS (IV); COMPARISON: No relevant prior studies available. FINDINGS: Pulmonary arteries: No pulmonary embolus is appreciated. Aorta: No thoracic aortic aneurysm seen. Lungs: No focal consolidation seen. Pleural spaces: No pleural effusion. Heart: No pericardial effusion. Lymph nodes: No acute abnormality seen. Bones/joints: No acute pertinent abnormality seen. Soft tissues: No acute pertinent abnormality seen. IMPRESSION: 1. No pulmonary embolus is appreciated. 2. No acute findings to explain reported symptoms. Dictated and Authenticated by: Miri Stark MD. Ordering:RICARDO Quintero MD
== END 2023-02-08 08:33 | disposition home or self-care (01) ==
PROVIDERS: Student in an Organized Health Care Education/Training Program; Emergency Provider Registered Nurse Emergency; PCP Family Medicine
DX: R07.89 Other chest pain (principal); J45.909 Unspecified asthma, uncomplicated
CPT/HCPCS: 36415; 71275; 80053; 82805; 83690; 87637; 93005; 94640; 96374; 99285; 83880; 84484; 85025; 85610; 85730; 93010; 99284; J0131; J3490; J7620

== ENCOUNTER 2023-02-08 14:55 | Emergency (ER) | payer MEDICAID, SELFPAY ==
[2023-02-08 14:57] VITALS: BP 115/71; PULSE 60; RESP 18; TEMP 36.4; O2SAT 100
--- NOTE | 2023-02-08 16:15 | RT.EKG_ITS ---
APPROVED REPORT Exam: Resting ECG Reason for Exam: chest pain Patient Location: E HR:59 bpm ECG Measurements Heart Rate 59 AXIS RI 156 P 44 QRSd 106 QRS 38 QT 451 T 38 QTc 447 Conclusion Sinus bradycardia...rate< 60 Low voltage, precordial leads...precordial leads <1.0mV
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
[2023-02-08] MEDS: predniSONE 20 MG TAB 40 MG PO (16:43)
[2023-02-08] MEDS: oxyCODONE 5 mg/Acetaminophen 325 mg TAB 1 TAB PO (16:43)
[2023-02-08] MEDS: Ketorolac 15 MG/ML VIAL IM (16:43)
== END 2023-02-08 17:09 | disposition home or self-care (01) ==
PROVIDERS: Emergency Provider Physician Assistant; PCP Family Medicine
DX: R07.89 Other chest pain (principal); J45.909 Unspecified asthma, uncomplicated
CPT/HCPCS: 93005; 96372; 99284; 93010; J1885; J7512

== ENCOUNTER 2025-03-10 11:45 | Emergency (ER) | payer MEDICAID, SELFPAY ==
[2025-03-10 11:48] VITALS: BP 113/64; PULSE 76; RESP 16; TEMP 37.1; O2SAT 98
--- NOTE | 2025-03-10 12:15 | DI.RAD_ITS ---
Exam(s) XR THUMB RT EXAM: XR THUMB RT CLINICAL HISTORY: right thumb pain after multiple injuries. TECHNIQUE: 2D digital imaging was performed. COMPARISON: No exams were available for comparison FINDINGS: 3 views No evidence of acute fracture or dislocation nor abnormal soft tissue densities. No radiopaque foreign bodies. No osseous lesions nor erosions. No degenerative changes. IMPRESSION: No acute osseous findings in the right thumb. DATA REPOSITORY: RADIATION DOSE DELIVERED:
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
== END 2025-03-10 14:14 | disposition home or self-care (01) ==
LOC: ER 13:59
PROVIDERS: Emergency Provider Student in an Organized Health Care Education/Training Program; PCP Family Medicine
DX: M79.644 Pain in right finger(s) (principal); M79.641 Pain in right hand
CPT/HCPCS: 99283 ×2; 73140